=== PATIENT | male | born 1950 | race Caucasian/White ===

== ENCOUNTER 2016-08-03 10:58 | Inpatient (IN) ==
[2016-08-03] MEDS ORDERED: Aspirin 325 MG TABLET PO ONE (11:02)
[2016-08-03] MEDS ORDERED: 0.9 % Sodium Chloride 1,000 ML IVC ONE (11:02)
[2016-08-03 11:27] LABS: Basophils # 0.1 K/mcL (0.0-0.2); Basophils % 0.6 %; Eosinophils # 0.2 K/mcL (0.0-0.6); Eosinophils % 2.6 %; Immature Granulocytes % 0.4 % (0-4); Lymphocytes # 2.2 K/mcL (0.6-4.6); Lymphocytes % 24.7 %; Mean Corpuscular HGB Conc 32.5 g/dL (31.6-35.5); Mean Corpuscular Hemoglobin 29.7 pg (28.0-33.3); Mean Corpuscular Volume 91.5 fL (83.0-100.0); Mean Platelet Volume 9.9 fL (9.4-12.4); Monocytes # 0.7 K/mcL (0.0-1.3); Monocytes % 7.8 %; Neutrophils # 5.7 K/mcL (1.6-8.9); Platelet Count 154 K/mcL (140-400); Red Blood Count 4.37 M/mcL (4.19-5.50); Red Cell Distribution Width 13.6 % (11.5-14.5); Segmented Neutrophils % 63.9 %
[2016-08-03 11:32] LABS: INR 1.3; Prothrombin Time 14.3 Seconds (9.4-12.1)
[2016-08-03 11:34] LABS: Activated Partial Thrombo Time 32.4 Seconds (26.0-36.0)
[2016-08-03 11:40] LABS: BUN/Creatinine Ratio 23 (6-26); Blood Urea Nitrogen 20 mg/dL (8-26); Calcium 9.3 mg/dL (8.6-10.8); Carbon Dioxide 24 mEq/L (19-29); Chloride 109 mEq/L (98-109); Glucose 112 mg/dL (70-99); Magnesium 1.8 mg/dL (1.6-2.6); Osmolality,Calculated 293 (280-300); Potassium 4.2 mEq/L (3.5-4.5); Sodium 140 mEq/L (136-145); eGFR For African Americans > 60 (> 60); eGFR For Non-African Americans > 60 (> 60)
--- NOTE | 2016-08-03 11:43 | Emergency Department Note ---
Disposition Clinical Impression: New onset atrial fibrillation Disposition: Admitted As Inpatient Condition: Good Referrals: NO,PCP [Primary Care Provider] - Forms: ED Satisfaction Letter Arrhythmia/Palpitations HPI - General Chief Complaint: ED Arrhythmia/Palpitations Stated Complaint: AFIB Time Seen by Provider: 08/03/16 11:01 Source: patient Limitations: no limitations Nursing Notes Reviewed: Yes Vital Signs Reviewed: Yes - History of Present Illness HPI Narrative: [facility]. fib with RVR. 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 He has not had any further syncopal episodes. Currently today he feels okay denies any chest pain Pt Subjective Complaint: rapid heart beat, "skipped beats", palpitations Onset (ago): week(s) (2) Duration: intermittent Severity: moderate Context: occurred during rest Associated symptoms: Denies: nausea, vomiting - Related Data Allergies Allergy/AdvReac Type Severity Reaction Status Date / Time No Known Allergies Allergy Verified 08/03/16 11:28 All systems ED: reviewed and negative except as stated. Constitutional: Denies: fever, weakness Respiratory: Denies: cough Neurological: Reports: other (syncope x1 one week ago) Past Medical History - Past Medical History Source: patient, old records reviewed, nursing notes reviewed Medical history: Reports: hepatitis, hypertension - Social History Smoking Status: Former smoker Smokeless Tobacco Status: No Alcohol use: Reports: none Drug use: Reports: marijuana Physical Exam - General Limitations: no limitations General appearance: alert, in no apparent distress - Head Head exam: atraumatic, normocephalic, normal inspection - Eye Eye exam: Present: normal appearance, PERRL, EOMI - Expanded Eye Exam Pupils: Left: reactive - ENT ENT exam: normal exam, normal oropharynx, mucous membranes moist - Expanded ENT Exam External ear exam: Present: normal external inspection Mouth exam: Present: normal external inspection Teeth exam: Present: normal inspection Throat exam: Present: normal inspection - Neck Neck exam: Present: normal inspection, full ROM, trachea midline - Chest Chest inspection: Present: normal inspection, symmetric chest wall rise - Respiratory Respiratory exam: Present: normal lung sounds bilaterally - Cardiovascular Cardiovascular exam: Present: tachycardia, irregular rhythm - Abdominal Exam Abdominal exam: Present: soft, Non-Tender. Absent: tenderness, distention, guarding, rebound, rigidity - Extremities Exam Extremities exam: Present: normal inspection, full ROM. Absent: tenderness, pedal edema - Expanded Upper Extremity Exam Shoulder exam: Present: normal inspection, full ROM Arm exam: Present: normal inspection, full ROM Elbow exam: Present: normal inspection, full ROM Forearm/Wrist exam: Present: normal inspection, full ROM Hand exam: Present: normal inspection, full ROM Vascular exam: Normal: capillary refill, radial pulse - Expanded Lower Extremity Exam Hip/Pelvis exam: Present: normal inspection, full ROM Upper leg exam: Present: normal inspection, full ROM Knee exam: Present: normal inspection, full ROM Lower leg exam: Present: normal inspection, full ROM Ankle exam: Present: normal inspection, full ROM Foot/toe exam: Present: normal inspection, full ROM Neurovascular/Tendon exam: Absent: motor deficit, sensory deficit, tendon deficit - Back Exam Back exam: Present: normal inspection, full ROM. Absent: tenderness - Neurological Exam Neurological exam: Present: alert, oriented X3 - Expanded Neurological Exam Patient oriented to: Present: person, place, time Coma Scale Eye Opening: Spontaneous Coma Scale Motor Response: Obeys Commands Coma Scale Verbal Response: Oriented Coma Scale Total: 15 - Psychiatric Psychiatric exam: Present: normal affect, normal mood - Skin Skin exam: Present: warm, dry, intact, normal color Course Vital Signs Temperature 98.7 F 08/03/16 11:00 Pulse Rate 108 08/03/16 11:00 Respiratory Rate 18 08/03/16 11:00 Blood Pressure 141/108 08/03/16 11:00 O2 Sat by Pulse Oximetry 95 08/03/16 11:00 Temperature 98.7 F 08/03/16 11:00 Pulse Rate 112 08/03/16 11:29 Respiratory Rate 18 08/03/16 11:29 Blood Pressure 161/94 08/03/16 11:29 O2 Sat by Pulse Oximetry 96 08/03/16 11:29 Oxygen Delivery Oxygen Delivery Room Air Arrhythmia/Palpitations - Differential Diagnosis Differential Diagnosis: Likely: palpitations, sinus tachycardia, artial arrhythmia, supraventricular tachycardia, ventricular tachycardia, metabolic/ electrolyte disturbance, undetermined arrhythmia - Medical Records Medical records reviewed: Yes I reviewed the patient's medical records. - Lab Data Lab results reviewed: Yes I reviewed the patient's lab results. Result diagrams: 08/03/16 11:20 08/03/16 11:20 Lab Results 08/03/16 08/03/16 08/03/16 Range/Units 11:20 11:20 11:20 WBC 8.9 (4.3-11.1) K/mcL RBC 4.37 (4.19-5.50) M/mcL Hgb 13.0 (12.9-16.9) g/dL Hct 40.0 (37.5-50.1) % MCV 91.5 (83.0-100.0) fL MCH 29.7 (28.0-33.3) pg MCHC 32.5 (31.6-35.5) g/dL RDW 13.6 (11.5-14.5) % Plt Count 154 (140-400) K/mcL MPV 9.9 (9.4-12.4) fL Immature Gran % 0.4 (0-4) % Seg Neutrophils % 63.9 % Lymphocytes % 24.7 % Monocytes % 7.8 % Eosinophils % 2.6 % Basophils % 0.6 % Neutrophils # 5.7 (1.6-8.9) K/mcL Lymphocytes # 2.2 (0.6-4.6) K/mcL Monocytes # 0.7 (0.0-1.3) K/mcL Eosinophils # 0.2 (0.0-0.6) K/mcL Basophils # 0.1 (0.0-0.2) K/mcL PT 14.3 H (9.4-12.1) Seconds INR 1.3 APTT 32.4 (26.0-36.0) Seconds Sodium 140 (136-145) mEq/L Potassium 4.2 (3.5-4.5) mEq/L Chloride 109 (98-109) mEq/L Carbon Dioxide 24 (19-29) mEq/L BUN 20 (8-26) mg/dL Creatinine 0.87 (0.72-1.25) mg/dL Est GFR ( Amer) > 60 (> 60) Est GFR (Non-Af Amer) > 60 (> 60) BUN/Creatinine Ratio 23 (6-26) Glucose 112 H (70-99) mg/dL Calculated Osmolality 293 (280-300) Calcium 9.3 (8.6-10.8) mg/dL Magnesium 1.8 (1.6-2.6) mg/dL Troponin I (0-0.03) ng/mL TSH 0.991 (0.350-4.840) mcIU/mL 08/03/16 Range/Units 11:20 WBC (4.3-11.1) K/mcL RBC (4.19-5.50) M/mcL Hgb (12.9-16.9) g/dL Hct (37.5-50.1) % MCV (83.0-100.0) fL MCH (28.0-33.3) pg MCHC (31.6-35.5) g/dL RDW (11.5-14.5) % Plt Count (140-400) K/mcL MPV (9.4-12.4) fL Immature Gran % (0-4) % Seg Neutrophils % % Lymphocytes % % Monocytes % % Eosinophils % % Basophils % % Neutrophils # (1.6-8.9) K/mcL Lymphocytes # (0.6-4.6) K/mcL Monocytes # (0.0-1.3) K/mcL Eosinophils # (0.0-0.6) K/mcL Basophils # (0.0-0.2) K/mcL PT (9.4-12.1) Seconds INR APTT (26.0-36.0) Seconds Sodium (136-145) mEq/L Potassium (3.5-4.5) mEq/L Chloride (98-109) mEq/L Carbon Dioxide (19-29) mEq/L BUN (8-26) mg/dL Creatinine (0.72-1.25) mg/dL Est GFR ( Amer) (> 60) Est GFR (Non-Af Amer) (> 60) BUN/Creatinine Ratio (6-26) Glucose (70-99) mg/dL Calculated Osmolality (280-300) Calcium (8.6-10.8) mg/dL Magnesium (1.6-2.6) mg/dL Troponin I 0.01 (0-0.03) ng/mL TSH (0.350-4.840) mcIU/mL - Radiology Data Radiology results reviewed: Yes I reviewed the patient's radiology results. - EKG Data Rate: tachycardia (126) Rhythm: A.Fib Interpretation: nonspecific ST-T wave changes Critical Care Time Critical Care Time: Yes Total Critical Care Time: 35 Attestation: Critical care performed: Time is exclusive of separately billable procedures. Time includes: direct patient care, patient reassessment, coordination of patient care, interpretation of data (laboratory data, radiology data, and respiratory data), review of patient's medical records, medical consultation and documentation of patient care. Procedures included in critical care time: Procedures excluded from critical care time:
[2016-08-03 12:02] LABS: Thyroid Stimulating Hormone 0.991 mcIU/mL (0.350-4.840)
[2016-08-03] MEDS ORDERED: Naloxone 0.4 MG/ML INJ IVP PRN (12:34)
--- NOTE | 2016-08-03 13:14 | Internal Med History&Physical ---
Date of Encounter: 08/03/16 Time of Encounter: 13:00 Assessment and Plan (1) New onset atrial fibrillation Current visit: Yes Status: Acute Patient with acute new onset atrial fibrillation. We will place the patient in the hospital. Monitor vital signs closely. Patient has been started on IV diltiazem drip. We will titrate to keep heart rate less than 100. Check 2-D echocardiogram. Check troponins. Patient's chads vasc score is 2. However with underlying pedal edema, he may have also have underlying cardiomyopathy/ congestive heart failure. For now, will start patient on anticoagulation with Lovenox. Will await results of 2-D echocardiogram to make further recommendations. High risk for complications due to use of Cardizem drip (2) Pedal edema Current visit: Yes Status: Acute We will give IV Lasix. Get 2-D echocardiogram. Patient does take amlodipine which can cause pedal edema. (3) Essential hypertension Current visit: Yes Status: Acute Patient's blood pressure is uncontrolled at this time. He has not been taking his blood pressure medications as he recently ran out of them. We will monitor and treat with his usual antihypertensives. We will also give intravenous medications if needed for persistently elevated blood pressure. Internal Medicine - H&P: HPI Chief complaint: Palpitations Admitted From: Emergency Dept Plans for Post Hospital Care: Home History of present illness: Mr. Singer is a 66 year old male Patient with a history of essential hypertension presented to the ER with complaints of palpitations. His symptoms have been going on for few days now. He has been having intermittent episodes of palpitations that come and go on their own. No prior history of any cardiac problems before. Denies any chest pain, lightheadedness or dizziness. shortness of breath. He does have some pedal edema that he has noticed more prominently these days. No orthopnea or PND. No cough, fever chills or night sweats. No history of any thyroid disease. He decided to come to the ER today has he has not been able to sleep due to his episodes of palpitations. Past Med Surg Social Fam HX - Past Medical History Medical history: hepatitis, hypertension - Social History Smoking Status: Former smoker Smokeless Tobacco Status: No Alcohol use: none Drug use: marijuana Internal Medicine - H&P: Meds Amlodipine [Norvasc] 5 mg PO DAILY 08/03/16 [History] Naproxen [Naprosyn] 250 mg PO TID PRN 08/03/16 [History] Sildenafil Citrate [Viagra] 50 mg PO AD PRN 08/03/16 [History] Allergies No Known Allergies Allergy (Verified 08/03/16 11:28) All Systems PM: A 10-system review of systems was performed and is negative for pertinent findings except as documented above in the HPI. - Constitutional Constitutional: no chills, no fever(s), no night sweats - EENT Eyes: no change in vision, no discharge, no pain, no photophobia Ears: no ear discharge, no ear pain, no tinnitus Nose, mouth and throat: no dysphagia, no nasal discharge, no neck pain, no sore throat - Cardiovascular Cardiovascular ROS IM: palpitations, no chest pain, no diaphoresis, no dyspnea, no lightheadedness, no syncope - Respiratory Respiratory: no cough, no dyspnea, no wheezing, no excessive phlegm production - Gastrointestinal Gastrointestinal: no abdominal pain, no diarrhea, no hematemesis, no hematochezia, no melena, no nausea, no vomiting - Musculoskeletal Musculoskeletal ROS IM: no numbness, no tingling - Integumentary Integumentary IM: no rash, no unusual bruising - Neurological Neurological ROS: no confusion, no convulsions, no focal weakness, no numbness, no tingling, no tremor(s) - Hematologic/Lymphatic Hematologic/Lymphatic: no easy bruising - Constitutional Vitals: Temp Pulse Resp BP Pulse Ox 98.7 F 98 16 142/92 96 08/03/16 11:00 08/03/16 12:21 08/03/16 12:21 08/03/16 12:21 08/03/16 12:21 General appearance: Present: cooperative, mild distress, A&O X 3, answers questions appropriately - Eye Eye exam: Present: EOMI, PERRL, conjuntiva pink, sclera anicteric - Neck Neck exam general surgery: Present: supple, trachea midline. Absent: lymphadenopathy - Respiratory Respiratory exam: Present: CTAB. Absent: accessory muscle use, rales, rhonchi, wheezes - Cardiovascular Cardiovascular exam: Present: irregular rhythm (Irregularly irregular), +S1, +S2 , tachycardia. Absent: diastolic murmur, gallop, rubs, systolic murmur - GI/Abdominal GI/Abdominal exam: Present: normal bowel sounds, soft, no peritoneal signs. Absent: distended, tenderness - Extremities Exam Extremities exam: Present: pedal edema, warm, radial pulses palpable and symetrical. Absent: calf tenderness, cyanotic - Neurological Exam Neurological exam: Present: alert, CN II-XII intact, oriented X3, no focal deficits. Absent: facial droop, speech deficit - Skin Skin exam: Present: dry, intact Internal Med - H&P Results - Labs CBC & Chem 7: 08/03/16 11:20 08/03/16 11:20 Labs: Short CBC 08/03/16 Range/Units 11:20 WBC 8.9 (4.3-11.1) K/mcL Hgb 13.0 (12.9-16.9) g/dL Hct 40.0 (37.5-50.1) % Plt Count 154 (140-400) K/mcL Neutrophils # 5.7 (1.6-8.9) K/mcL BMP 08/03/16 11:20 Sodium 140 Potassium 4.2 Chloride 109 Carbon Dioxide 24 BUN 20 Creatinine 0.87 Glucose 112 H Calcium 9.3 Cardiac Enzymes 08/03/16 Range/Units 11:20 Troponin I 0.01 (0-0.03) ng/mL - EKG Data -: EKG Interpreted by Myself - EKG Data EKG comments: 08/03/16 13:15 A. fib with RVR - Impressions ITS Impressions Chest X-Ray 08/03/16 11:02 IMPRESSION: Minimal right basilar atelectasis. D/ / 08/03/2016 11:17:42 Aaron Bains MD / nadja Interpreting Provider: Aaron Bains MD - Attending Attestation This document has been at least partially created by [employer] recognition technology by Dr. Dee. Errors in grammar, wording or other phrases may exist. If errors are found after the documentation is signed, they will be addressed individually in the addendum section of this document when appropriate.
[2016-08-03] MEDS ORDERED: Furosemide 20 MG/2 ML VIAL IVP ONE (13:21)
[2016-08-03] MEDS: *HR* Enoxaparin 100 MG/ML SYRINGE SQ SCH (16:52)
[2016-08-04 04:54] VITALS: BP 142/93
[2016-08-04] MEDS: *HR* Enoxaparin 100 MG/ML SYRINGE SQ SCH (05:17)
[2016-08-04 05:23] LABS: Basophils # 0.1 K/mcL (0.0-0.2); Basophils % 0.5 %; Eosinophils # 0.2 K/mcL (0.0-0.6); Eosinophils % 1.7 %; Hematocrit 38.6 % (37.5-50.1); Hemoglobin 12.7 g/dL (12.9-16.9); Immature Granulocytes % 0.4 % (0-4); Lymphocytes # 2.5 K/mcL (0.6-4.6); Lymphocytes % 23.4 %; Mean Corpuscular HGB Conc 32.9 g/dL (31.6-35.5); Mean Corpuscular Hemoglobin 30.3 pg (28.0-33.3); Mean Corpuscular Volume 92.1 fL (83.0-100.0); Mean Platelet Volume 10.4 fL (9.4-12.4); Monocytes # 0.8 K/mcL (0.0-1.3); Monocytes % 7.8 %; Neutrophils # 7.1 K/mcL (1.6-8.9); Platelet Count 164 K/mcL (140-400); Red Blood Count 4.19 M/mcL (4.19-5.50); Red Cell Distribution Width 13.8 % (11.5-14.5); Segmented Neutrophils % 66.2 %
[2016-08-04 05:41] LABS: BUN/Creatinine Ratio 20 (6-26); Blood Urea Nitrogen 19 mg/dL (8-26); Carbon Dioxide 23 mEq/L (19-29); Chloride 109 mEq/L (98-109); Chol/HDL Ratio 3.8 (0-4.9); Cholesterol 92 mg/dL (< 200); Glucose 111 mg/dL (70-99); HDL Cholesterol 24 mg/dL (40-59); LDL Cholesterol,Calculated 52 mg/dL (0-99); Osmolality,Calculated 295 (280-300); Potassium 3.9 mEq/L (3.5-4.5); Sodium 141 mEq/L (136-145); Triglycerides 81 mg/dL (< 150); eGFR For African Americans > 60 (> 60); eGFR For Non-African Americans > 60 (> 60)
[2016-08-04] MEDS ORDERED: Lisinopril 20 MG TABLET PO SCH (09:00)
[2016-08-04] MEDS ORDERED: amLODIPine 5 MG TABLET PO SCH (09:00)
--- NOTE | 2016-08-04 09:41 | ECHO - Doppler Report ---
Echocardiogram Name: Salo Singer Date of Study: 08/04/2016 Date: 1950 Ht: 73.0 in Medical Record#: [id number] Age: 66 Wt: 219.0 lb Gender: Male BSA: 2.24 Order #: [id number] Location: [facility] Room #: 2NE29 Reading Physician: Enrrique Andrade MD, [facility] Furniture Upholsterer Apprentice: Helena Bower Ordering Physician: Alexa Dee MD Primary Physician: [facility] Indications: AFIB- new onset Impressions: Normal LV systolic function, LVEF 60-65%. Indeterminate diastolic function due to atrial fibrillation. Normal right ventricular size and function. Mildly dilated left atrium. Mildly dilated right atrium. Moderately thickened/calcified mitral valve leaflets. Moderate mitral regurgitation (eccentric, posteriorly directed). Moderate-severe tricuspid regurgitation. Moderate pulmonary hypertension. Estimated RVPS = 51 mmHg. Left Ventricular Wall Motion: Rest Echo Findings All wall segments showed normal motion. Findings: Study Quality * Suboptimal echo windows. ECG Findings * Atrial fibrillation. Left Ventricle * Normal LV systolic function, LVEF 60-65%. * Normal LV chamber size and wall thickness. * Indeterminate diastolic function due to atrial fibrillation. Right Ventricle * Normal right ventricular size and function. Left Atrium * Mildly dilated left atrium. Right Atrium * Mildly dilated right atrium. Aorta * Normally sized aortic root. Pericardium * There is no pericardial effusion present. IVC * The IVC is mildly dilated. Aortic Valve * Trileaflet aortic valve. * Mildly sclerotic aortic valve leaflets. * No aortic stenosis. * Trace aortic regurgitation. Mitral Valve * Mild mitral annular calcification * Moderately thickened/calcified mitral valve leaflets. * No mitral stenosis. * Moderate mitral regurgitation (eccentric, posteriorly directed). Tricuspid Valve * Normal tricuspid valve structure. * No tricuspid stenosis. * Moderate-severe tricuspid regurgitation. * Moderate pulmonary hypertension. Estimated RVPS = 51 mmHg. Pulmonic Valve * Pulmonic valve not well visualized. * No pulmonic stenosis. * Trace pulmonic regurgitation. History Hypertension Family History of CAD Measurements: BP: 142/ 93 2D Normal Values RVIDd: 3.30 cm IVSd: 1.00 cm 0.6 - 1.0 cm LVIDd: 4.80 cm 3.7 - 5.6 cm LVPWd: 1.00 cm 0.6 - 1.1 cm LVIDs: 3.50 cm 1.5 - 3.6 cm AO: 3.20 cm < 4.0 cm %FS: 27.10 cm >25 % LA volume: 79 Tricuspid Valve TV Regurg Peak Grad: 43.00mmHg TV Regurg Peak Bubba: 3.29m/sec Updated by Enrrique Andrade MD, [facility] on 08/04/2016 9:36:39 AM electronically signed on 08/04/2016 9:37:14 AM with status of Final Wall Motion Mcgovern: 1=Normal, 2=Hypokinesis, 3=Akinesis, 4=Dyskinesis, 5=Aneurysmal, 6=Hyperkinetic, X=Not Visualized (Blank)=Missing
--- NOTE | 2016-08-04 17:51 | Electrocardiograph Report ---
[address] [address] Test Date: 2016-08-03 Pat Name: Salo Singer Department: 102 Room: 2NE29 Gender: M Vice Chancellor: : 1950 Requested By: Jasper Frazier Order Number: [id number] Reading MD: Ana Arshad Measurements Intervals Butler Rate: 126 P: IN: 0 QRS: 0 QRSD: 93 T: 40 QT: 301 QTc: 376 Interpretive Statements ATRIAL FIBRILLATION WITH RAPID VENTRICULAR RESPONSE ABNORMAL RHYTHM ECG Electronically Signed On 08-04-2016 17:49:35 EDT by Ana Arshad
--- NOTE | 2016-08-04 18:17 | Discharge Summary ---
Date of Encounter: 08/04/16 Time of Encounter: 10:00 - Discharge Diagnosis (1) New onset atrial fibrillation Priority: Primary Status: Acute (2) Pedal edema Priority: Primary Status: Acute (3) Essential hypertension Priority: Primary Status: Acute - Discharge Medications Home Medications: Amlodipine [Norvasc] 5 mg PO DAILY 08/03/16 [History] Naproxen [Naprosyn] 250 mg PO TID PRN 08/03/16 [History] Sildenafil Citrate [Viagra] 50 mg PO AD PRN 08/03/16 [History] Allergies/Adverse Reactions: Allergies No Known Allergies Allergy (Verified 08/03/16 11:28) Date of admission: 08/03/16 13:23 [facility] Discharging clinician: Migel Wellington - Patient Status Disposition: Left Against Medical Advice Condition: Good - Discharge Instructions Instructions: Atrial Fibrillation (DC) Follow Up With: [facility]P [Primary Care Provider[facility] - Beau Nascimento DO [Partnered Physician] - Forms: Inpatient Work/School Release - Diet and Activity Activity: as per physical therapy, increase activity as tolerated Diet: low fat, low cholesterol, low salt diet Interval History: Mr. Singer is a 66 year old male Patient with a history of essential hypertension presented to the ER with complaints of palpitations. His symptoms have been going on for few days now. He has been having intermittent episodes of palpitations that come and go on their own. No prior history of any cardiac problems before. Denies any chest pain, lightheadedness or dizziness. shortness of breath. He does have some pedal edema that he has noticed more prominently these days. No orthopnea or PND. No cough, fever chills or night sweats. No history of any thyroid disease. He decided to come to the ER today. Hospital course: Patient was hospitalized. He was started on intravenous Cardizem drip. He is chads VASC score was 2. He was also given Lovenox to therapeutic dose. Patient responded to this treatment and his heart rate was less than 100/m. Echocardiogram was ordered in view of pedal edema. Possibility of underlying compromise heart function in terms of cardiomyopathy/congestive heart failure was raised. This morning patient told his RN as well as to myself that he prefers to go home. The reasoning for going home is that he has pets to take care of. Patient does that at no cost he can stay in the hospital. I have explained patient in front of his nurse Mr. Viramontes that it will be dangerous to leave the hospital when he is getting medications for his irregular heart rate. I also explained patient that he might get stroke, heart attack, renal failure, gangrene of the leg, permanent disability due to any thrombotic event, irreversible brain damage and . He was for firm on his decision. He decided to leave the hospital AGAINST MEDICAL ADVICE. Patient signed the AMA form. I gave patient prescription for Cardizem 240 mg extended release once a day 30 tablets. I gave patient prescription for xarelto. About prescriptions are handwritten prescriptions. Again as a last attempt, myself and who is the patient's registered nurse , explained patient about the possible adverse events. Patient insisted to go and he left hospital AGAINST MEDICAL ADVICE. Appointments made with the PCP/cardiology - Time Spent with Patient Total time spent providing and/or coordinating discharge services: - Constitutional Vitals: Temp Pulse Resp BP Pulse Ox 97.9 F 126 16 142/93 95 08/04/16 08:33 08/04/16 08:33 08/04/16 08:33 08/04/16 04:46 08/04/16 08:33 General appearance: Present: cooperative, mild distress, A&O X 3, answers questions appropriately - Head Head exam: Present: atraumatic, normocephalic - Eye Eye exam: Present: PERRL, conjuntiva pink, sclera anicteric Pupils: Present: PERRL - Neck Neck exam general surgery: Present: supple, trachea midline. Absent: lymphadenopathy - Respiratory Respiratory exam: Present: CTAB. Absent: accessory muscle use, rales, rhonchi, wheezes - Cardiovascular Cardiovascular exam: Present: RRR, +S1, +S2. Absent: diastolic murmur, gallop, rubs, systolic murmur - GI/Abdominal GI/Abdominal exam: Present: normal bowel sounds, soft, no peritoneal signs. Absent: distended, tenderness - Extremities Exam Extremities exam: Present: warm, radial pulses palpable and symetrical. Absent : calf tenderness, cyanotic, pedal edema - Neurological Exam Neurological exam: Present: CN II-XII intact, oriented X3, no focal deficits. Absent: pronater drift, facial droop, speech deficit - Skin Skin exam: Present: dry, intact
== END 2016-08-04 11:01 | disposition left against medical advice (07) | DRG 309 ==
LOC: 2NENU 10:58 → EMEROO 10:58 → 2NENU 15:36
PROVIDERS: ADMIT Internal Medicine; ATTEND Internal Medicine

== ENCOUNTER 2016-08-11 13:39 | Inpatient (IN) ==
--- NOTE | 2016-08-11 16:00 | Emergency Department Note ---
Disposition Clinical Impression: Chest pain Qualifiers: Chest pain type: unspecified Qualified Code(s): R07.9 - Chest pain, unspecified Fluid overload Qualifiers: Hypervolemia type: unspecified Qualified Code(s): E87.70 - Fluid overload, unspecified A-fib Qualifiers: Atrial fibrillation type: unspecified Qualified Code(s): I48.91 - Unspecified atrial fibrillation Disposition: Admitted As Inpatient Condition: Fair [facility]: [facility]Primary Care Provider[facility] - Forms: ED Satisfaction Letter Time of Disposition: 16:06 Chest Pain HPI - General Chief Complaint: ED Chest Pain Stated Complaint: chest pain Time Seen by Provider: 08/11/16 13:42 Source: EMS Mode of arrival: EMS Limitations: no limitations Vital Signs Reviewed: Yes Nursing Notes Reviewed: Yes - History of Present Illness HPI Narrative: Patient presents to emergency room for complaint of chest pain. Onset of symptoms 1 week ago. Resolution of the diaphragm. His primary care provider called him and several medications on considering he did not complete an outpatient evaluation recommendation for admission at that time. Patient presents here today with one episode of 30 minutes of left-sided chest pain. He also felt short of breath. Symptoms of resolved on arrival here. Patient was given an aspirin in transit. Patient denies any other symptoms or complaints prior to these events here today. He was concerned and the outside provider was concerned recommended he come to emergency room for evaluation this time Pt complaint: chest pain Duration: now resolved Onset: during rest Pain Location: substernal Severity: none Severity scale (1-10): 0 Quality: heaviness Pain Radiation: none Improves with: nothing Worsens with: nothing Associated symptoms: Reports: dyspnea, leg swelling Treatments prior to arrival chest pain: aspirin - Related Data Home Medications Medication Instructions Recorded Confirmed Naproxen [Naprosyn] 250 mg PO TID PRN 08/03/16 08/11/16 Sildenafil Citrate [Viagra] 50 mg PO AD PRN 08/03/16 08/11/16 Aspirin [Ecotrin] 325 mg PO DAILY 08/11/16 08/11/16 Diltiazem HCl [Diltiazem 24Hr Cd] 240 mg PO DAILY 08/11/16 08/11/16 Furosemide [Lasix] 20 mg PO DAILY 08/11/16 08/11/16 Lisinopril [Zestril] 40 mg PO DAILY 08/11/16 08/11/16 Rivaroxaban [Xarelto] 20 mg PO DAILY 08/11/16 08/11/16 Allergies Allergy/AdvReac Type Severity Reaction Status Date / Time No Known Allergies Allergy Verified 08/03/16 11:28 All systems ED: reviewed and negative except as stated. Constitutional: Denies: fever, chills Cardiovascular: Reports: chest pain, dyspnea on exertion, edema. Denies: palpitations, orthopnea Respiratory: Denies: cough, dyspnea, wheezes Gastrointestinal: Denies: nausea, vomiting, diarrhea Genitourinary: Denies: dysuria, frequency Chest Pain PMH - Past Medical History Medical history: Reports: CHF, hepatitis, hypertension Surgical history: Reports: no surgical history Psychiatric history: Reports: no psych history - Social History Smoking Status: Former smoker Alcohol use: Reports: none Drug use: Reports: none, marijuana, other Physical Exam - General Limitations: no limitations General appearance: alert - Neck Neck exam: Present: normal inspection, full ROM, trachea midline. Absent: tenderness, meningismus, lymphadenopathy - Chest Chest inspection: Present: normal inspection, symmetric chest wall rise. Absent : tenderness - Respiratory Respiratory exam: Present: normal lung sounds bilaterally. Absent: respiratory distress, wheezes, accessory muscle use - Cardiovascular Cardiovascular exam: Present: regular rate, normal rhythm, normal heart sounds - Abdominal Exam Abdominal exam: Present: soft, Non-Tender, normal bowel sounds. Absent: tenderness, distention, guarding, rebound, rigidity, Tam's sign, Rovsing's sign, tenderness at McBurney's Point - Extremities Exam Extremities exam: Present: normal inspection, full ROM, normal capillary refill , pedal edema. Absent: tenderness - Back Exam Back exam: Present: normal inspection, full ROM. Absent: tenderness - Neurological Exam Neurological exam: Present: alert, oriented X3, CN II-XII intact, normal gait - Skin Skin exam: Present: warm, dry, intact, normal color Course Course Narrative: patient seen and examined 66-year-old gentleman presents here today with chest pain that started just prior to arrival. Symptoms resolved spontaneously without any medical intervention. Patient was seen at the [facility] and they were concerned recommended come the emergency room. Labs were ordered at that time results were not available during my conversation with the transferring physician. Patient arrival here is in no acute distress resting comfortably in the bed. EKG and labs from outside of facility reviewed troponin is negative labs within normal limits. D-dimer is normal. Patient has an EKG that shows A. fib with normal rate. Patient on presentation has clear lungs heart is irregularly irregular abdomen is soft nontender nondistended no guarding or rigidity no peritoneal symptoms no pulsatile mass or hernia. Patient moves all 4 extremities with purpose. He is alert and oriented 3 speaking in full sentences. Bilateral lower extremities have pitting edema to the mid thigh. He feels that this is better than what it was just several days ago. Patient is concerning for acute fluid overload secondary to heart failure, cardiac related source, pulmonary related issues. Patient to have repeat troponin and BNP ordered at this time here in the emergency room. No need to be clockwise based on imaging and labs that were performed prior to arrival at this facility. Patient will most likely need admission for poorly controlled cardiac related symptoms causing shortness of breath chest discomfort. Patient is not having any pain at this time and does not require any further intervention. No need for nitroglycerin or aspirin at this time. He is on anticoagulant medication but does not know what it is. Admission process to be completed once labs are resulted - Reevaluation(s) Reevaluation #1: Patient is resting comfortably has not had any reemergence of the chest discomfort or pain. Troponin repeated here and is negative. BNP was elevated in the 190 range. Patient to be admitted at this time for what appears to be acute CHF exacerbation with cardiac strain causing shortness of breath and lower extremity edema. Patient does have A. fib and is anticoagulated with unknown medications point. No other acute intervention needed this time. Disposition will be admission to the hospital. Patient is placed at this time to the hospitalist for admission process to be completed Time: 16:04 Reevaluation #2: Patient reviewed with the hospitalist Dr. monte. We reviewed the presentation symptoms medical history intervention performed at the [facility]. Comfortable man the patient this time for what appears to be a CHF exacerbation with angina-like symptoms. He has stable A. fib with no signs of RVR. Disposition will be admission this time. We will can to moderate in emergency room until emission process is completedj Time: 16:40 Vital Signs Temperature 97.2 F L 08/11/16 13:41 Pulse Rate 93 08/11/16 13:41 Respiratory Rate 18 08/11/16 13:41 Blood Pressure 176/88 08/11/16 13:41 O2 Sat by Pulse Oximetry 94 08/11/16 13:41 Temperature 97.2 F L 08/11/16 13:41 Pulse Rate 78 08/11/16 14:40 Respiratory Rate 18 08/11/16 14:40 Blood Pressure 168/88 08/11/16 14:40 O2 Sat by Pulse Oximetry 95 08/11/16 14:40 Oxygen Delivery Oxygen Delivery Room Air Chest Pain - MDM Narrative Medical decision making narrative: Chest pain, congestive heart failure, fluid overload A. fib - Medical Records Medical records reviewed: Yes I reviewed the patient's medical records. - Lab Data Lab results reviewed: Yes I reviewed the patient's lab results. Lab results narrative: Reviewed from outside hospital and repeat labs including troponin and BNP reviewed Lab Results 08/11/16 08/11/16 Range/Units 13:58 13:59 Troponin I 0.01 (0-0.03) ng/mL B-Natriuretic Peptide 194 H (0-100) pg/mL - Radiology Data Radiology results reviewed: Yes I reviewed the patient's radiology results. - EKG Data EKG attestation: Yes I reviewed and interpreted this EKG. Rhythm: A.Fib When compared to previous EKG there are: no significant changes Interpretation: no acute changes, unchanged when compared to prior tracing (date ) Heart Score - Score History: Moderately Suspicious EKG: Non Specific repolarisation Disturbance Age: Greater than 65 Risk Factors: Equal/Greater than 3 risk factor or history of atherosclerotic disease Troponin: Less than normal limit HEART Score Total: 6 Attestation Statement - Attestation Attestation: Patient was seen with resident physician. I reviewed the history, physical, assessment and plan, and agree with the findings. I also personally evaluated this patient and had [id number] time with this patient. 66-year-old male transferred from the [facility] for cardiac workup. Patient had an episode of chest pain in the middle to right lower chest last week but refused treatment at that time. Had another episode today while attempting to push a heavy object. He said the pain lasted approximately 30 minutes was a pressure-like sensation in his chest as already spontaneously. He was seen at the [facility] initial chest x-ray and labs were normal, but he was sent here for further evaluation and treatment. At time my evaluation patient was pain-free. He does note that he has swelling in his lower extremities which he says is not necessarily new for him and he might be slightly worse than usual but not appreciably. He denies shortness of breath. On examination vital signs are stable ENT is unremarkable. Heart and lungs normal. Abdomen is soft and nontender. Extremities patient has 2+ pitting edema of the lower extremities bilaterally. Neurologically the patient's intact. We repeated a troponin and a BMP the BNP was mildly elevated troponin was negative. Reviewing his EKG patient has A. fib which is unchanged from previous. Rate is well-controlled. Contacted the hospitalist service to arrange for hospitalization rule out SC and further workup for cardiac issues and potential cardiac chest pain. Patient was accepted for admission. He remained hemodynamically stable while in the emergency department. I agree with the resident physician assessment and plan.
[2016-08-11] MEDS ORDERED: *HR* OxyCODONE Immed Rel 5 MG TABLET PO PRN (17:44)
[2016-08-11] MEDS ORDERED: Acetaminophen 325 MG TABLET PO PRN (17:44)
[2016-08-11] MEDS ORDERED: Naloxone 0.4 MG/ML INJ IVP PRN (17:44)
--- NOTE | 2016-08-11 17:55 | Internal Med History&Physical ---
Date of Encounter: 08/11/16 Time of Encounter: 17:51 Assessment and Plan (1) Persistent atrial fibrillation Current visit: Yes Status: Acute He had newly diagnosed atrial fibrillation 9 days ago and at that time workup was initiated but he left the hospital AMA. He continues to be in atrial fibrillation, rate controlled. We will continue with Cardizem oral. Continue anticoagulation with Xarelto. (2) Acute on chronic diastolic heart failure Current visit: Yes Status: Acute Likely secondary to new onset persistent atrial fibrillation also exacerbated by fluid overload. The patient clinically appears to be grossly fluid overloaded. I suspect underlying diastolic heart failure. His recent echocardiogram from previous admission reveals normal ejection fraction. We will treat the patient with IV Lasix 40 mg twice a day. Fluid restriction. Strict I's and O's. Daily weights. Consider cardiology consult for evaluation of ischemic heart disease given new onset CHF. (3) DVT prophylaxis Current visit: Yes Status: Acute On Xarelto. Does not require any additional prophylaxis. (4) Essential hypertension Current visit: No Status: Acute Continue with lisinopril and diltiazem. (5) Chest pain Current visit: Yes Status: Acute Likely secondary to CHF exacerbation although unstable angina enters the differential. We will monitor the patient on telemetry. Trend troponin to rule out ACS. We will obtain stress test once the patient is euvolemic. At this point the patient is fluid overloaded and therefore I will hold off from stress testing. Qualifiers: Chest pain type: precordial pain Qualified Code(s): R07.2 - Precordial pain Internal Medicine - H&P: HPI Chief complaint: Chest pain Admitted From: Emergency Dept History of present illness: Mr. Singer is a 66 year old male with past medical history of atrial fibrillation and essential hypertension who came to the emergency department sent from the [facility] where he presented with chest pain. 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 This lasted about 30 minutes. It was associated with shortness of breath. He relates that he has been having is insertional chest pain on and off for the last 1 week. He has had more shortness of breath with exertion and leg swelling. Per [facility] chart he has gained 8 pounds in the last 7 days. 8 days ago he was admitted to our hospital and he signed out AMA to take care of his dogs at home. His workup at the [facility] revealed normal troponin, elevated BNP, normal basic chemistry labs. Past medical history: Atrial fibrillation recently started on anticoagulation with Xarelto, essential hypertension, hepatitis C Past surgical history: Hernia repair Family history: Patient's mother suffered with coronary heart disease Social history: He has a remote history of smoking, quit 10 years ago at the same time he quit drinking alcohol. Denies any recent IV drug use. Past Med Surg Social Fam HX - Past Medical History Medical history: CHF, hepatitis, hypertension Psychiatric history: no psych history - Past Surgical History Surgical History: no surgical history - Social History Smoking Status: Former smoker Smokeless Tobacco Status: No Alcohol use: none Drug use: none, marijuana, other - Family History Mother Family Member Ethnicity: Non- Living Status: Hx Family Cardiac Disorders: Yes Internal Medicine - H&P: Meds Naproxen [Naprosyn] 250 mg PO TID PRN 08/03/16 [History] Sildenafil Citrate [Viagra] 50 mg PO AD PRN 08/03/16 [History] Aspirin [Ecotrin] 325 mg PO DAILY 08/11/16 [History] Diltiazem HCl [Diltiazem 24Hr Cd] 240 mg PO DAILY 08/11/16 [History] Furosemide [Lasix] 20 mg PO DAILY 08/11/16 [History] Lisinopril [Zestril] 40 mg PO DAILY 08/11/16 [History] Rivaroxaban [Xarelto] 20 mg PO DAILY 08/11/16 [History] Allergies No Known Allergies Allergy (Verified 08/03/16 11:28) All Systems PM: A 10-system review of systems was performed and is negative for pertinent findings except as documented above in the HPI. - Constitutional Vitals: Temp Pulse Resp BP Pulse Ox 97.2 F L 72 18 162/91 96 08/11/16 13:41 08/11/16 16:40 08/11/16 16:40 08/11/16 16:40 08/11/16 16:40 General appearance: Present: A&O X 3 - Eye Eye exam: Present: PERRL, conjuntiva pink, sclera anicteric Pupils: Present: PERRL - Respiratory Respiratory exam: Present: CTAB. Absent: accessory muscle use, rales, rhonchi, wheezes - Cardiovascular Cardiovascular exam: Present: irregular rhythm, +S1, +S2, systolic murmur (3/6 systolic murmur at the apex), tachycardia. Absent: diastolic murmur, gallop, rubs - GI/Abdominal GI/Abdominal exam: Present: normal bowel sounds, soft, no peritoneal signs. Absent: distended, tenderness - Extremities Exam Extremities exam: Present: pedal edema (2+ pitting edema), warm, radial pulses palpable and symetrical. Absent: calf tenderness, cyanotic - Neurological Exam Neurological exam: Present: CN II-XII intact, oriented X3, no focal deficits. Absent: pronater drift, facial droop, speech deficit - Skin Skin exam: Present: dry, intact Internal Med - H&P Results - Labs Labs: From [facility] chart blood testing done today 08/11/2016: Sodium 142, potassium 4.1, BUN 19, creatinine 1.2. Hemoglobin 11.6. ProBNP 697. INR 1.5. Troponin less than 0.01. Chest x-ray shows vascular crowding versus pulmonary edema. EKG at the [facility] shows atrial fibrillation with rate 100. No ST or T-wave changes. - EKG Data -: EKG Interpreted by Myself - EKG Data Prior EKG available for review: yes When compared to previous EKG: there is no significant change EKG comments: 08/11/16 17:59 EKG reveals atrial fibrillation rate controlled, normal axes and intervals no acute ST or T-wave changes. Narrow QRS.
[2016-08-11] MEDS: Furosemide 20 MG/2 ML VIAL IVP SCH (20:13)
[2016-08-12 01:05] LABS: Basophils # 0.1 K/mcL (0.0-0.2); Basophils % 0.6 %; Eosinophils # 0.2 K/mcL (0.0-0.6); Eosinophils % 1.8 %; Hematocrit 37.7 % (37.5-50.1); Hemoglobin 12.1 g/dL (12.9-16.9); Immature Granulocytes % 0.6 % (0-4); Lymphocytes # 1.9 K/mcL (0.6-4.6); Lymphocytes % 17.1 %; Mean Corpuscular HGB Conc 32.1 g/dL (31.6-35.5); Mean Corpuscular Hemoglobin 29.6 pg (28.0-33.3); Mean Corpuscular Volume 92.2 fL (83.0-100.0); Mean Platelet Volume 10.1 fL (9.4-12.4); Neutrophils # 7.7 K/mcL (1.6-8.9); Platelet Count 143 K/mcL (140-400); Red Blood Count 4.09 M/mcL (4.19-5.50); Red Cell Distribution Width 13.4 % (11.5-14.5); Segmented Neutrophils % 70.9 %
[2016-08-12 01:22] LABS: BUN/Creatinine Ratio 18 (6-26); Blood Urea Nitrogen 18 mg/dL (8-26); Calcium 8.9 mg/dL (8.6-10.8); Carbon Dioxide 25 mEq/L (19-29); Chloride 104 mEq/L (98-109); Chol/HDL Ratio 3.1 (0-4.9); Cholesterol 93 mg/dL (< 200); Glucose 109 mg/dL (70-99); HDL Cholesterol 30 mg/dL (40-59); LDL Cholesterol,Calculated 51 mg/dL (0-99); Magnesium 1.9 mg/dL (1.6-2.6); Osmolality,Calculated 286 (280-300); Sodium 137 mEq/L (136-145); Triglycerides 60 mg/dL (< 150); eGFR For African Americans > 60 (> 60); eGFR For Non-African Americans > 60 (> 60)
[2016-08-12] MEDS: Furosemide 20 MG/2 ML VIAL IVP SCH ×2 (08:51→16:35)
[2016-08-12] MEDS: *HR* Rivaroxaban 10 MG TABLET PO SCH (08:51)
[2016-08-12] MEDS: Lisinopril 20 MG TABLET PO SCH (08:51)
[2016-08-12] MEDS ORDERED: Diltiazem CD (24hr) 240 MG CAPSULE PO SCH (09:00)
[2016-08-12] MEDS ORDERED: Aspirin Enteric Coated 325 MG Tablet PO SCH (09:00)
--- NOTE | 2016-08-12 13:45 | Cardiology Consult Note ---
Date of Encounter: 08/12/16 Time of Encounter: 13:44 Assessment and Plan (1) Chest pain Current Visit: Yes Status: Acute C/o exertional chest pain over past week. May be secondary to uncontrolled afib and diastolic CHF. Recommend ischemic work-up. Trend troponin. Stress test once HR controlled. NPO after midnight. TTE 08/03/16 showed EF 60-65%. Mildly dilated bilateral atrium. Moderately calcified mitral valve with moderate MR. Moderate to severe TR. Qualifiers: Chest pain type: precordial pain Qualified Code(s): R07.2 - Precordial pain (2) A-fib Current Visit: Yes Status: Acute Atrial fibrillation with RVR. Avg HR over 12 hours was 114 bpm. HR 90-124 bpm currently. Increase cardizem. TTE shows Normal EF. Moderate MR and moderate to severe TR. Currently on xarelto for AC. Will discuss further with Dr. Lalito Arshad. Qualifiers: Atrial fibrillation type: unspecified Qualified Code(s): I48.91 - Unspecified atrial fibrillation (3) Acute on chronic diastolic heart failure Current Visit: Yes Status: Acute ACute on chronic diastolic CHF. Likely exacerbated by atrial fibrillation with RVR. Agree with diuresis. BNP 194. CHF education reviewed. Strict I&O and daily weights. Low sodium diet. Increase lasix 40 mg BID. Discussion w patient/family: The assessment and plan as outlined above was discussed with the patient and/or family members who expressed understanding and agreement. All questions were answered. Thank you for involving us in the care of your patient. Please call with any questions. History of Present Illness Consult date: 08/12/16 Requesting physician: Tommy Acevedo Consult reason: Chest pain Chief complaint: Chest pain, SOB, and BLE edema. History of present illness: Mr. Singer is a 66 year old male who presents with one week of intermittent chest pain, BLE edema, and SOB. He originally presented 08/03/16 with the same symptoms and he was found to be in atrial fibrillation with RVR. He was treated with cardizem and anti-coagulated on xarelto. He left AMA prior to his full work -up and treatment was completed. His symptoms were not resolved after going home. He admits to mid-sternal chest pain with exertion that is relieved with rest. He also c/o right sided lower chest discomfort that is reproducible. On this admission his EKG showed atrial fibrillation with HR [address] changes seen. Troponin was negative. Cardiology consulted for further evaluation. Denies history of CAD. Reports remote stress test. Past medical history included HTN and recently diagnosed atrial fibrillation. He usually seeks care through the [facility]. Past Med Surg Social Fam HX - Past Medical History Attestation: Yes The following information was validated with the patient. Medical history: atrial fibrillation, hepatitis, hypertension Psychiatric history: no psych history - Past Surgical History Surgical History: no surgical history - Social History Smoking Status: Former smoker Smokeless Tobacco Status: No Alcohol use: none Drug use: marijuana, other - Family History Mother Name: Sarah Family Member Ethnicity: Non- Living Status: Age at : 92 Cause of : heart Hx Family Cardiac Disorders: Yes Medications and Allergies Naproxen [Naprosyn] 250 mg PO TID PRN 08/03/16 [History] Sildenafil Citrate [Viagra] 50 mg PO AD PRN 08/03/16 [History] Aspirin [Ecotrin] 325 mg PO DAILY 08/11/16 [History] Diltiazem HCl [Diltiazem 24Hr Cd] 240 mg PO DAILY 08/11/16 [History] Furosemide [Lasix] 20 mg PO DAILY 08/11/16 [History] Lisinopril [Zestril] 40 mg PO DAILY 08/11/16 [History] Rivaroxaban [Xarelto] 20 mg PO DAILY 08/11/16 [History] Allergies No Known Allergies Allergy (Verified 08/03/16 11:28) All Systems Review: A 10-system review of systems was performed and is negative for pertinent findings except as documented above in the HPI. Physical Examination Vital Signs, Last 4 Hours Temp Pulse Resp BP Pulse Ox 08/12/16 12:39 97.5 F L 116 16 126/83 95 General: Conversant, No Apparent Distress HEENT: Atraumatic, Normocephaly, Mucus Membranes Moist Neck: No JVD, Normal carotid pulses Cardiac: Other (Irregularly irregular) Lungs: Normal Breath Sounds, No Wheeze, Rales, Rhonchi Neuro: Alert and responsive, No focal deficits noted Abdomen: Soft, Non-Tender Skin: No rashes noted on visualized skin Musculoskeletal: No Chest Wall Tenderness Extremities: No Clubbing, No Cyanosis, Normal Pulses, Other (2+ edema up to his knees. ) Results 08/12/16 00:55 08/12/16 00:55 Lab Results 08/11/16 08/12/16 08/12/16 19:55 00:55 00:55 WBC 10.8 Hgb 12.1 L Hct 37.7 Plt Count 143 Sodium Potassium Chloride Carbon Dioxide BUN Creatinine Glucose Calcium Magnesium Troponin I 0.01 0.01 08/12/16 08/12/16 00:55 04:55 WBC Hgb Hct Plt Count Sodium 137 Potassium 4.0 Chloride 104 Carbon Dioxide 25 BUN 18 Creatinine 1.02 Glucose 109 H Calcium 8.9 Magnesium 1.9 Troponin I 0.00 - Imaging and Cardiology Echo: report reviewed - EKG Interpretation EKG results cardiology: other (telemetry review shows avg HR 114 bpm. HR 90-120 currently.) Consult Discharge Plan - Plan Referrals: [facility] [Outside] - 08/22/16 8:30 am
--- NOTE | 2016-08-12 17:13 | Electrocardiograph Report ---
[place] [id number] Test Date: 2016-08-11 Pat Name: Salo Singer Department: 105 Room: 2N5 Gender: M Referral Management Liaison: RHODA : 1950 Requested By: Tommy Acevedo Order Number: [id number] Reading MD: Lalito Arshad Measurements Intervals [place] Rate: 82 P: PA: 0 QRS: -1 QRSD: 93 T: 29 QT: 359 QTc: 398 Interpretive Statements ATRIAL FIBRILLATION ABNORMAL RHYTHM ECG Electronically Signed On 08-12-2016 17:11:44 EDT by Lalito Arshad
--- NOTE | 2016-08-12 17:40 | Internal Med Progress Note ---
Date of Encounter: 08/12/16 Time of Encounter: 10:00 - Assessment and plan (1) Persistent atrial fibrillation Current Visit: Yes Status: Acute Assessment and plan: Resume oral diltiazem extended release. His heart rate was uncontrolled throughout the night at 110 to 130s. I will add one dose of IV diltiazem 10 mg. We will monitor the patient on telemetry. (2) Acute on chronic diastolic heart failure Current Visit: Yes Status: Acute Assessment and plan: Likely exacerbated by fluid overload, atrial fibrillation in the context of suspected diastolic dysfunction. Ejection fraction was 60% 10 days ago. IV Lasix 40 mg twice a day. Fluid restriction. Daily weights. Strict I's and O's. Cardiology consult. (3) DVT prophylaxis Current Visit: Yes Status: Acute Assessment and plan: on Xarelto (4) Essential hypertension Current Visit: No Status: Acute Assessment and plan: Continue home meds. (5) Chest pain Current Visit: Yes Status: Acute Assessment and plan: Serial troponins are negative. ACS was ruled out. Plan for stress test in the morning. Qualifiers: Chest pain type: precordial pain Qualified Code(s): R07.2 - Precordial pain - Subjective Interval history: Patient presented with substernal 7/10 chest pain on and off brought on by exertion associated with shortness of breath. He reports that he has been chest pain-free for the last 18 hours since admission. Denies shortness of breath at rest. Denies wheezing fevers chills or cough. - Constitutional Vitals: Temp Pulse Resp BP Pulse Ox 97.8 F 70 16 107/74 94 08/12/16 17:00 08/12/16 17:00 08/12/16 17:00 08/12/16 17:00 08/12/16 17:00 General appearance: Present: A&O X 3 - Eye Eye exam: Present: PERRL, conjuntiva pink, sclera anicteric Pupils: Present: PERRL - Respiratory Respiratory exam: Present: CTAB. Absent: accessory muscle use, rales, rhonchi, wheezes - Cardiovascular Cardiovascular exam: Present: irregular rhythm, +S1, +S2, systolic murmur, tachycardia. Absent: diastolic murmur, gallop, rubs - GI/Abdominal GI/Abdominal exam: Present: normal bowel sounds, soft, no peritoneal signs. Absent: distended, tenderness - Extremities Exam Extremities exam: Present: warm, radial pulses palpable and symetrical. Absent : calf tenderness, cyanotic, pedal edema - Skin Skin exam: Present: dry, intact Internal Medicine: Result - Labs CBC & Chem 7: 08/12/16 00:55 08/12/16 00:55 Labs: Short CBC 08/12/16 Range/Units 00:55 WBC 10.8 (4.3-11.1) K/mcL Hgb 12.1 L (12.9-16.9) g/dL Hct 37.7 (37.5-50.1) % Plt Count 143 (140-400) K/mcL Neutrophils # 7.7 (1.6-8.9) K/mcL BMP 08/12/16 00:55 Sodium 137 Potassium 4.0 Chloride 104 Carbon Dioxide 25 BUN 18 Creatinine 1.02 Glucose 109 H Calcium 8.9 Cardiac Enzymes 08/11/16 08/12/16 08/12/16 Range/Units 19:55 00:55 04:55 Troponin I 0.01 0.01 0.00 (0-0.03) ng/mL Consult Discharge Plan - Plan Referrals: [facility] [Outside] - 08/22/16 8:30 am
[2016-08-13 05:01] LABS: Basophils # 0.1 K/mcL (0.0-0.2); Basophils % 0.4 %; Eosinophils # 0.1 K/mcL (0.0-0.6); Eosinophils % 1.2 %; Hematocrit 36.6 % (37.5-50.1); Immature Granulocytes % 0.8 % (0-4); Lymphocytes # 1.9 K/mcL (0.6-4.6); Lymphocytes % 16.5 %; Mean Corpuscular HGB Conc 32.8 g/dL (31.6-35.5); Mean Corpuscular Hemoglobin 30.2 pg (28.0-33.3); Mean Platelet Volume 10.4 fL (9.4-12.4); Monocytes # 0.7 K/mcL (0.0-1.3); Monocytes % 6.5 %; Neutrophils # 8.4 K/mcL (1.6-8.9); Platelet Count 200 K/mcL (140-400); Red Blood Count 3.98 M/mcL (4.19-5.50); Red Cell Distribution Width 13.5 % (11.5-14.5); Segmented Neutrophils % 74.6 %
[2016-08-13 05:24] LABS: BUN/Creatinine Ratio 25 (6-26); Blood Urea Nitrogen 26 mg/dL (8-26); Calcium 9.1 mg/dL (8.6-10.8); Carbon Dioxide 24 mEq/L (19-29); Chloride 106 mEq/L (98-109); Glucose 121 mg/dL (70-99); Magnesium 2.1 mg/dL (1.6-2.6); Osmolality,Calculated 292 (280-300); Potassium 4.2 mEq/L (3.5-4.5); Sodium 138 mEq/L (136-145); eGFR For African Americans > 60 (> 60); eGFR For Non-African Americans > 60 (> 60)
[2016-08-13] MEDS ORDERED: Diltiazem CD (24hr) 120 MG CAPSULE PO SCH (09:00)
--- NOTE | 2016-08-13 10:29 | Cardiology Progress Note ---
Date of Encounter: 08/13/16 Time of Encounter: 09:30 Assessment and Plan (1) New onset atrial fibrillation Current Visit: No Status: Acute Per Cardiology: Remains A. fib currently rate controlled in the 80s. We'll discontinue Cardizem for concerns of LE swelling. Increase metoprolol to 50 mg by mouth twice a day and continue titrate as needed. Echo showed EF preserved 60-65%, mildly dilated right and left atrium, moderate to severe TR, moderate MR, moderate pulmonary hypertension. Regarding long-term anticoagulation on Xarelto 20 mg by mouth daily. Denies any active bleeding or blood loss. Dr. Lalito Arshad aware of MR and agrees with continued Xarelto for now. Plan for rate control strategy with anticaogulation and attempt for rhythm control as outpatient. (2) Acute on chronic diastolic heart failure Current Visit: Yes Status: Acute Per Cardiology: ACute on chronic diastolic CHF. Likely exacerbated by atrial fibrillation with RVR and valvular heart disease. BNP only 194. On lasix 40 mg BID. Net I&O + 520ml. Continue with daily weights, strict I&O. (3) Chest pain Current Visit: Yes Status: Acute Per Cardiology: Troponins negative 4. Stress test pending today. Further recommendations after stress test. Currently chest pain-free. Qualifiers: Chest pain type: precordial pain Qualified Code(s): R07.2 - Precordial pain Discussion w patient/family: The assessment and plan as outlined above was discussed with the patient and/or family members who expressed understanding and agreement. All questions were answered. Thank you for involving us in the care of your patient. Please call with any questions. Subjective Principal diagnosis: Afib, CP Interval history: Patient denies any chest pain, shortness of breath, palpitations. Denies any active bleeding or blood loss. Reports stress test already underway. He denies any concerns or complaints. Objective Vital Signs, Last 4 Hours Temp Pulse Resp BP Pulse Ox 08/13/16 06:32 97.9 F 89 16 133/87 98 General: Conversant, No Apparent Distress HEENT: Atraumatic, Normocephaly, Mucus Membranes Moist Neck: No JVD, Normal carotid pulses Cardiac: No Murmur, Other (Irregularly irregular) Lungs: Normal Breath Sounds, No Wheeze, Rales, Rhonchi Neuro: Alert and responsive, No focal deficits noted Skin: No rashes noted on visualized skin Extremities: No Edema, Normal Pulses Results 08/13/16 04:24 08/13/16 04:24 Lab Results Laboratory Tests 08/11/16 08/11/16 08/11/16 13:58 13:59 19:55 Troponin I 0.01 0.01 B-Natriuretic Peptide 194 H LDL Cholesterol, Calc 08/12/16 08/12/16 08/12/16 00:55 00:55 04:55 Troponin I 0.01 0.00 B-Natriuretic Peptide LDL Cholesterol, Calc 51 Intake & Output 08/10/16 08/11/16 08/12/16 08/13/16 23:59 23:59 23:59 23:59 Intake Total 720 / 720 0 / 0 Output Total 200 / 200 Balance 520 / 520 0 / 0 Weight 100.5 kg 99.4 kg 97.4 kg Active Medications Acetaminophen (Tylenol) 650 mg PO Q6HR PRN PRN Reason: Mild Pain (1-3) Stop: 02/10/17 17:45 Aspirin (Aspirin Ec) 325 mg PO DAILY [facility] Stop: 02/11/17 09:01 Last Admin: 08/12/16 08:51 Dose: 325 mg Diltiazem HCl (Cardizem Cd) 120 mg PO DAILY [facility] Stop: 02/12/17 09:01 Docusate Sodium (Colace) 100 mg PO BID PRN PRN Reason: Constipation Stop: 02/10/17 17:45 Furosemide (Lasix) 40 mg IVP BIDDIURETIC [facility] Stop: 02/10/17 17:46 Last Admin: 08/12/16 16:35 Dose: 40 mg Lisinopril (Zestril) 40 mg PO DAILY [facility] Stop: 02/11/17 09:01 Last Admin: 08/12/16 08:51 Dose: 40 mg Metoprolol Tartrate (Lopressor) 25 mg PO BID [facility] Stop: 02/11/17 14:16 Last Admin: 08/12/16 21:23 Dose: 25 mg Naloxone HCl (Narcan) 0.4 mg IVP Q2MIN PRN PRN Reason: Opioid Reversal Stop: 02/10/17 17:45 Oxycodone HCl (Roxicodone) 5 mg PO Q6HR PRN PRN Reason: Moderate Pain (4-6) Stop: 02/10/17 17:45 Last Admin: 08/12/16 21:24 Dose: 5 mg Rivaroxaban (Xarelto) 20 mg PO DAILY [facility] Stop: 02/11/17 09:01 Last Admin: 08/12/16 08:51 Dose: 20 mg - EKG Interpretation EKG results cardiology: other (avg HR 86, afib on tele, currently in 80's) Consult Discharge Plan - Plan Referrals: [facility] [Outside] - 08/22/16 8:30 am
[2016-08-13] MEDS ORDERED: Regadenoson 0.4 MG/5 ML SYRINGE IVP ONE (11:45)
[2016-08-13] MEDS: Lisinopril 20 MG TABLET PO SCH (13:17)
[2016-08-13] MEDS: Furosemide 20 MG/2 ML VIAL IVP SCH ×2 (13:18→21:44)
[2016-08-13] MEDS: *HR* Rivaroxaban 10 MG TABLET PO SCH (13:18)
[2016-08-13] MEDS: Aspirin Enteric Coated 81 MG Tablet PO SCH (13:20)
--- NOTE | 2016-08-13 14:08 | Nuclear Medicine Stress Report ---
Regadenoson Nuclear Stress Name: Salo Singer Date of Study: 08/13/2016 Date: 1950 Ht: 72.0 in Medical Record#: [id number] Age: 66 Wt: 215.0 lb Gender: Male Order #: [id number] Location: [facility] Room: [facility] Supervising Provider: Renée De Paz CNP Reading Physician: Enrrique Andrade MD, [facility] Ordering Physician: Henry Ragsdale DO Primary Care Physician: [facility] Stress Technologist: Abdias Anaya, [employer], [facility] Steam Trap Man: Kadeem Greene Indications: Chest Pain Impression: Atrial fibrillation was present throughout the study. No significant ECG changes with regadenoson. Study quality is poor due to severe patient motion during the study. Gated LVEF = 67%. Cannot rule-out LV apical ischemia. Otherwise normal myocardial perfusion in rest and stress. History: Hypertension Stress Test Summary: Stress Test Type: Pharmacologic Regadenoson 0.4mg/5ml given IV Baseline Information: Initial Heart Rate: 83 Blood Pressure: 148/74 Stress Information: Test Terminated Due to (primary): As per protocol Maximum Blood Pressure: 144/68 Maximum Heart Rate: 109 Percent Maximum Heart Rate Achieved: 71 Double Product: [id number] Symptoms: No chest symptoms Nuclear Summary: SPECT myocardial perfusion imaging using Tc99m Sestamibi given intravenously was performed at rest and following cardiac stress testing. The resting images were obtained following initial dose of 11.5 mCi. Following stress an additional dose of 34.3 mCi was given at peak exercise or 30 seconds post regadenoson infusion. Findings: Stress Note * Resting ECG demonstrated atrial fibrillation. * Atrial fibrillation was present throughout the study. * 1 PVC noted in recovery. * Patient had no chest pain during stress. * No significant ECG changes with regadenoson. Hemodynamic responses * Normal hemodynamic responses to pharmacologic stress. Study Quality * Study quality is poor due to severe patient motion during the study. Gated EF % * Gated LVEF = 67%. Left Ventricle * The left ventricle is not dilated. * Cannot rule-out LV apical ischemia. * Otherwise normal myocardial perfusion in rest and stress. TID * No evidence of transient ischemic dilatation. Updated by Enrrique Andrade MD, [facility] on 08/13/2016 2:03:27 PM electronically signed on 08/13/2016 2:03:56 PM with status of Final
--- NOTE | 2016-08-13 16:00 | Event Note ---
Date of Encounter: 08/13/16 Time of Encounter: 15:59 - Cardiology Event Note Stress test resulted--Study poor quality due to severe patient motion during study. Gated EF 67%. Cannot rule out LV apical ischemia. Otherwise normal myocardial ischemia perfusion in rest and stress. Low risk study, discussed with Dr. Lalito Arshad. Chest pain likely secondary to A-Fib. Recommend anticoagulation x 4 weeks, then plan for DCCV as outpt. If still having chest pain once in sinus rhythm, then could consider a C to further evaluate. ASA, Statin, BB. No further inpt evaluation warranted. Discussed with pt, who verbalizes understanding. Cardiology signing off. Reconsult PRN. Will coordinate outpt follow-up.
--- NOTE | 2016-08-13 18:40 | Internal Med Progress Note ---
Date of Encounter: 08/13/16 Time of Encounter: 17:00 - Assessment and plan (1) Acute on chronic diastolic heart failure Current Visit: Yes Status: Acute Assessment and plan: Continues to be volume overloaded. Will continue diuresis today. Probable d/ c home tomorrow. (2) Chest pain Current Visit: Yes Status: Acute Assessment and plan: Stress test negative per cardiology. Qualifiers: Chest pain type: precordial pain Qualified Code(s): R07.2 - Precordial pain (3) Persistent atrial fibrillation Current Visit: Yes Status: Acute Assessment and plan: Better controlled rate today. Continue current medications. (4) Essential hypertension Current Visit: No Status: Acute Assessment and plan: Continue home meds. - Subjective Interval history: Mr. Singer is currently admitted for acute exac diastolic heart failure and a fib. He remains moderate to high risk due to potential for worsening cardiac status. Mr. Singer had stress test today. No further chest pain. No dyspnea in bed but does get SOB when up and about. Legs remain very edematous though he has lost some weight since admit. No fever or chills. No GI symptoms. - Constitutional Vitals: Temp Pulse Resp BP Pulse Ox 97.4 F L 85 16 124/80 97 08/13/16 14:56 08/13/16 14:56 08/13/16 14:56 08/13/16 14:56 08/13/16 14:56 General appearance: Present: A&O X 3, answers questions appropriately - Head Head exam: Present: normocephalic - Eye Eye exam: Present: conjuntiva pink - ENT ENT exam: Present: mucous membranes moist - Respiratory Respiratory exam: Present: decreased breath sounds, rales. Absent: rhonchi, wheezes - Cardiovascular Cardiovascular exam: Present: irregular rhythm. Absent: tachycardia - GI/Abdominal GI/Abdominal exam: Present: soft. Absent: tenderness - Extremities Exam Extremities exam: Present: warm (Significant edema bilateral lower extremities.) - Neurological Exam Neurological exam: Present: alert, oriented X3 - Skin Skin exam: Present: warm. Absent: rash Internal Medicine: Result - Labs CBC & Chem 7: 08/13/16 04:24 08/13/16 04:24 Labs: Short CBC 08/13/16 Range/Units 04:24 WBC 11.2 H (4.3-11.1) K/mcL Hgb 12.0 L (12.9-16.9) g/dL Hct 36.6 L (37.5-50.1) % Plt Count 200 (140-400) K/mcL Neutrophils # 8.4 (1.6-8.9) K/mcL BMP 08/13/16 04:24 Sodium 138 Potassium 4.2 Chloride 106 Carbon Dioxide 24 BUN 26 Creatinine 1.06 Glucose 121 H Calcium 9.1 Consult Discharge Plan - Plan Instructions: Heart Failure (DC), Atrial Fibrillation (DC), Chronic Hypertension (DC), Edema (DC) Referrals: [facility] [Outside] - 08/22/16 8:30 am
[2016-08-14] MEDS: Lisinopril 20 MG TABLET PO SCH (08:41)
[2016-08-14] MEDS: Furosemide 20 MG/2 ML VIAL IVP SCH ×3 (08:42→16:06)
[2016-08-14] MEDS: *HR* Rivaroxaban 10 MG TABLET PO SCH (08:42)
[2016-08-14] MEDS: Aspirin Enteric Coated 81 MG Tablet PO SCH (08:42)
[2016-08-14] MEDS ORDERED: Nitroglycerin 1 INCH/GM PACKET TP PRN (11:41)
--- NOTE | 2016-08-14 13:10 | Cardiology Progress Note ---
Date of Encounter: 08/14/16 Time of Encounter: 13:08 Assessment and Plan (1) Chest pain Current Visit: Yes Status: Acute Per Cardiology: Troponins negative 4. Stress test completed yesterday--Study poor quality due to severe patient motion during study. Gated EF 67%. Cannot rule out LV apical ischemia. Otherwise normal myocardial ischemia perfusion in rest and stress. Low risk study, discussed with Dr. Lalito Arshad. Chest pain likely secondary to A-Fib. Recurrent pain with afb with RVR this am. Increase bb as tolerated. Discussed DCCV with DEBBIE during this admission. He prefers to go home as planned today and do in out patient setting if not done today. Pt already ate today. Recommend anticoagulation x 4 weeks, then plan for DCCV as outpt. If still having chest pain once in sinus rhythm, then could consider a [facility] to further evaluate. ASA, Statin, BB. No further inpt evaluation warranted. Qualifiers: Chest pain type: precordial pain Qualified Code(s): R07.2 - Precordial pain (2) A-fib Current Visit: Yes Status: Acute Atrial fibrillation with RVR. Avg HR over 12 hours was 95 bpm. HR 90-110 bpm currently. Afib with RVR this am and HR up to 167 bpm. Increase metoprolol as tolerated. Increase to 100 mg BID. TTE shows Normal EF. Moderate MR and moderate to severe TR. Currently on xarelto for AC. Plan as described above. Plan for DCCV after 4 weeks of anticoagulation. Out patient f/u will be scheduled. Qualifiers: Atrial fibrillation type: unspecified Qualified Code(s): I48.91 - Unspecified atrial fibrillation (3) Acute on chronic diastolic heart failure Current Visit: Yes Status: Acute Per Cardiology: ACute on chronic diastolic CHF. Likely exacerbated by atrial fibrillation with RVR and valvular heart disease. BNP only 194. On lasix 40 mg BID. Net I&O + 520ml. Continue with daily weights, strict I&O. Discussion w patient/family: The assessment and plan as outlined above was discussed with the patient and/or family members who expressed understanding and agreement. All questions were answered. Thank you for involving us in the care of your patient. Please call with any questions. Subjective Principal diagnosis: Afib, CP Interval history: Cardiology re-consulted d/t afib with RVR and chest pain this morning. Pt was ambulating in his room. He developed right sided lower chest wall pain described as a pinching. He was noted to be in atrial fibrillation with RVR with HR up to 167 bpm. He was given extra lopressor and HR improved. He is currently pain free. Objective Vital Signs, Last 4 Hours Temp Pulse Resp BP Pulse Ox 08/14/16 11:16 97.5 F L 101 16 126/69 97 General: Conversant, No Apparent Distress HEENT: Atraumatic, Normocephaly, Mucus Membranes Moist Neck: No JVD, Normal carotid pulses Cardiac: Other (Irregularly irregular) Lungs: Normal Breath Sounds, No Wheeze, Rales, Rhonchi Neuro: Alert and responsive, No focal deficits noted Abdomen: Soft, Non-Tender Skin: No rashes noted on visualized skin Musculoskeletal: No Chest Wall Tenderness Extremities: No Clubbing, No Cyanosis, Normal Pulses, Other (2+ BLE edema up to mid jose. ) Results 08/13/16 04:24 08/13/16 04:24 Lab Results 08/14/16 12:08 Troponin I 0.00 - Imaging and Cardiology Stress Test: report reviewed - EKG Interpretation EKG results cardiology: other (Telemetry review shows Avg HR 95 bpm. HR up to 167 this am. Afib with RVR throughout morning. No HR 90-110.) Consult Discharge Plan - Plan Instructions: Heart Failure (DC), Atrial Fibrillation (DC), Chronic Hypertension (DC), Edema (DC) Referrals: [facility] [Outside] - 08/22/16 8:30 am
[2016-08-14 15:56] VITALS: BP 119/83
[2016-08-14] MEDS ORDERED: Furosemide 40 MG TABLET PO ONE (16:15)
--- NOTE | 2016-08-14 16:49 | Discharge Summary ---
Date of Encounter: 08/14/16 Time of Encounter: 16:43 - Discharge Diagnosis (1) Acute on chronic diastolic heart failure Priority: Primary Status: Acute (2) Chest pain Priority: Secondary Status: Acute Qualifiers: Chest pain type: precordial pain Qualified Code(s): R07.2 - Precordial pain (3) Persistent atrial fibrillation Priority: Primary Status: Acute (4) Essential hypertension Priority: Secondary Status: Acute - Discharge Medications Prescriptions: OxyCODONE Immed Rel [Roxicodone 5 MG] 5 mg PO Q6HR PRN #20 tablet PRN Reason: Moderate Pain (4-6) Atorvastatin [Lipitor] 40 mg PO HS #30 tablet Metoprolol [Lopressor] 100 mg PO BID #120 tablet Home Medications: Furosemide [Lasix] 20 mg PO DAILY 08/11/16 [History] Lisinopril [Zestril] 40 mg PO DAILY 08/11/16 [History] Rivaroxaban [Xarelto] 20 mg PO DAILY 08/11/16 [History] Aspirin Enteric Coated [Aspirin EC] 81 mg PO DAILY tablet. 08/14/16 [Rx] Atorvastatin [Lipitor] 40 mg PO HS #30 tablet 08/14/16 [Rx] Metoprolol [Lopressor] 100 mg PO BID #120 tablet 08/14/16 [Rx] OxyCODONE Immed Rel [Roxicodone 5 MG] 5 mg PO Q6HR PRN #20 tablet 08/14/16 [Rx] Allergies/Adverse Reactions: Allergies No Known Allergies Allergy (Verified 08/03/16 11:28) Procedures/tests Complete & Pending: Procedures Performed prior 72 hours Category Date Time Status NM kevin perf SPECT multi [NM] Routine Exams 08/13/16 08:35 Taken SP pharm nuclear stress Routine Y 08/13/16 08:35 Completed Date of admission: 08/11/16 17:44 [facility] care physician: [facility] Consults: 08/12/16 09:07 Consult to Cardiology [CONS] Routine Comment: Consulting Provider: Cardiology Aleah Reason for Consult: CP, new onset CHF, Afib Time Notified: 09:08 Call Completed: Yes Discharging clinician: Henry Ragsdale Anticipated date of discharge: 08/14/16 - Patient Status Disposition: Home, Self-Care Condition: Fair Functional capacity at discharge: independent ambulation Overall status at discharge: patient is progressing back to baseline - Discharge Instructions Instructions: Heart Failure (DC), Atrial Fibrillation (DC), Chronic Hypertension (DC), Edema (DC) Follow Up With: [facility] [Outside] - 08/22/16 8:30 am - Diet and Activity Activity: increase activity as tolerated Diet: low fat, low cholesterol Hospital course: Mr. Singer is a 66 year old male recently diagnosed with atrial fibrillation. He had been hospitalized but left AMA. He re-presented to the [facility] with chest pain and was transferred to the ED here. He also had noted increased swelling and ARGUETA. He was evaluated and admitted for further treatment. Mr. Singer was admitted to [facility]. He was evaluated by cardiology and changed from Cardizem to Metoprolol for rate control. He had improvement in his rate and had nuclear stress test. Chest pain felt related to a fib. He also was given diuretic with improvement. On 08/14 he had recurrent rapid atrial fib which responded to increased dose of metoprolol. Discussion occurred with patient to undergo DEBBIE/cardioversion and he wished to pursue in the future. He was afebrile with improved heart rate. At that time he was felt stable for discharge home. He is to follow up with Dr. Arshad and have cardioversion after 4 weeks of anticoagulation. If chest pain persists then LHC to be considered. - Time Spent with Patient Total time spent providing and/or coordinating discharge services: 39min - Constitutional Vitals: Temp Pulse Resp BP Pulse Ox 97.4 F L 80 16 119/83 98 08/14/16 15:55 08/14/16 15:55 08/14/16 15:55 08/14/16 15:55 08/14/16 15:55 General appearance: Present: A&O X 3, answers questions appropriately - Head Head exam: Present: normocephalic - Eye Eye exam: Present: conjuntiva pink - ENT ENT exam: Present: mucous membranes moist - Respiratory Respiratory exam: Present: decreased breath sounds, CTAB - Cardiovascular Cardiovascular exam: Present: irregular rhythm. Absent: tachycardia - GI/Abdominal GI/Abdominal exam: Present: soft. Absent: tenderness - Extremities Exam Extremities exam: Present: pedal edema, warm - Neurological Exam Neurological exam: Present: alert, oriented X3, no focal deficits - Skin Skin exam: Present: warm. Absent: rash
--- NOTE | 2016-08-15 15:24 | Electrocardiograph Report ---
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
== END 2016-08-14 19:05 | disposition home or self-care (01) | DRG 308 ==
LOC: 3BNU 13:39 → EMEROO 13:39 → 2NENU 17:36 → SUATTDRO 17:44 → 2NENU 19:02
PROVIDERS: ADMIT Internal Medicine Endocrinology, Diabetes & Metabolism; ATTEND Internal Medicine